=== PATIENT | male | born 1930 | race African-American/Black ===

== ENCOUNTER 2017-06-27 11:27 | Emergency (ER) | payer MEDICARE, OTHER ==
[~2017-06-27] VITALS: Ht 182.9 cm; Wt 59.0 kg
[~2017-06-27 11:27] MED LIST: OMEP20TA2 PO
[2017-06-27 13:58] VITALS: BP 129/70
== END 2017-06-27 13:59 | disposition home or self-care (01) ==
LOC: ER 12:14
DX: I10 Essential (primary) hypertension (principal); E78.00 Pure hypercholesterolemia, unspecified; Z88.0 Allergy status to penicillin
CPT/HCPCS: 99283

== ENCOUNTER 2018-07-05 01:46 | Inpatient (IN) | payer MEDICARE ==
[~2018-07-05] VITALS: Ht 180.3 cm; Wt 65.8 kg
[2018-07-05] MEDS ORDERED: SODIUM CHLORIDE 0.9% 1,000 ML IV ONE (02:58)
[2018-07-05] MEDS ORDERED: ONDANSETRON HCL 4MG/2ML INJ IV STA (02:58)
[2018-07-05] MEDS ORDERED: MORPHINE SULFATE 4 MG/ML CPJ (NOT FOR IM USE) IV STA (02:58)
[2018-07-05] MEDS ORDERED: FAMOTIDINE 20MG/2ML VIAL IV STA (02:58)
[2018-07-05] MEDS ORDERED: DIATR MEGLU/DIATRIZOATE SOLN 30ML ONE (03:43)
[2018-07-05 04:08] LABS: CHLORIDE 105 mEq/L (98-107)
[2018-07-05 04:09] LABS: HEMOGLOBIN. 13.1 g/dL (14.0-18.0); MEAN CORPUSCULAR HEMOGLOBIN 28.4 pg (28.0-32.0); MEAN CORPUSCULAR VOLUME 86.9 fL (80.0-94.0); MEAN PLATELET VOLUME 9.2 fl (7.4-10.4); PLATELET 109 x1000/uL (130-400); RED BLOOD CELL COUNT 4.61 mill/uL (4.7-6.1); RED CELL DISTRIBUTION WIDTH 15.4 % (11.6-14.6)
[2018-07-05] MEDS ORDERED: METOCLOPRAMIDE HCL 10MG/2ML VIAL IV ONE (05:15)
[2018-07-05] MEDS ORDERED: SODIUM CHLORIDE 0.9% 1,000 ML IV SCH (05:25)
[2018-07-05 06:12] LABS: PLATELET ESTIMATE SLIGHTLY DECREASED
[2018-07-05] MEDS ORDERED: IOHEXOL-350 100 ML BOTTLE ONE (06:49)
[2018-07-05 06:52] LABS: CLARITY URINE CLOUDY (CLEAR); COLOR URINE YELLOW (YELLOW); KETONES URINE TRACE (NEGATIVE); LEUKOCYTE ESTERASE URINE NEGATIVE (NEGATIVE); NITRITE URINE NEGATIVE (NEGATIVE); OCCULT BLOOD URINE NEGATIVE (NEGATIVE); PH URINE 8.5 (4.5-8.0); PROTEIN URINE 1+ (NEGATIVE); SPECIFIC GRAVITY URINE 1.023 (1.005-1.030); UROBILINOGEN URINE 0.2 E.U./dL (0.2-1.0)
[2018-07-05 07:45] VITALS: BP 166/91
[2018-07-05 08:00] VITALS: BP 166/91
[2018-07-05] MEDS ORDERED: MORPHINE SULFATE 4 MG/ML CPJ (NOT FOR IM USE) IV PRN (08:30)
[2018-07-05] MEDS: HYDRALAZINE 20MG/ML VIAL IV PRN ×3 (09:21→09:46)
[2018-07-05] MEDS: PANTOPRAZOLE SODIUM 40 MG/VIAL IV SCH (09:21)
[2018-07-05 10:27] VITALS: BP 156/91
[2018-07-05 12:00] VITALS: BP 156/75
[2018-07-05] MEDS: ENALAPRIL 1.25MG/ML VIAL 1ML IV SCH ×2 (13:05→18:36)
[2018-07-05] MEDS: ONDANSETRON HCL 4MG/2ML INJ IV PRN (14:52)
[2018-07-05] MEDS: DEXT 5%/0.45% NACL 1000ML 1,000 ML IV SCH ×2 (15:13→21:50)
[2018-07-05 16:00] VITALS: BP 143/72
[2018-07-05] MEDS ORDERED: DEXTROSE 50% WATER 50ML SYRINGE IV PRN (16:30)
[2018-07-05] MEDS: INSULIN LISPRO 100 UNITS/ML SUBCUT SCH ×2 (17:15→21:00)
[2018-07-05] MEDS: BLOOD SUGAR DIAGNOSTIC STRIP TEST SCH ×2 (17:27→21:00)
[2018-07-05 20:00] VITALS: BP 142/78
[2018-07-05 22:48] LABS: HEPATITIS B SURFACE ANTIGEN NEGATIVE
[2018-07-05 23:17] LABS: HEPATITIS B CORE AB IGM NEGATIVE
[2018-07-05 23:18] LABS: HEPATITIS A AB IGM NEGATIVE (NEGATIVE)
[2018-07-06] VITALS (8 sets, daily range): BP systolic 148–181; BP diastolic 79–97
[2018-07-06] MEDS: ENALAPRIL 1.25MG/ML VIAL 1ML IV SCH ×4 (05:46→18:03)
[2018-07-06 06:32] LABS: HEMATOCRIT. 39.1 % (42.0-52.0); MEAN CORPUSCULAR HEMOGLOBIN 28.9 pg (28.0-32.0); MEAN CORPUSCULAR VOLUME 86.9 fL (80.0-94.0); PLATELET 107 x1000/uL (130-400); RED CELL DISTRIBUTION WIDTH 15.4 % (11.6-14.6)
[2018-07-06] MEDS: BLOOD SUGAR DIAGNOSTIC STRIP TEST SCH ×4 (06:45→21:00)
[2018-07-06] MEDS: INSULIN LISPRO 100 UNITS/ML SUBCUT SCH ×4 (07:13→21:00)
[2018-07-06 08:31] LABS: CHLORIDE 106 mEq/L (98-107)
[2018-07-06] MEDS: PANTOPRAZOLE SODIUM 40 MG/VIAL IV SCH (08:58)
[2018-07-06] MEDS: ONDANSETRON HCL 4MG/2ML INJ IV PRN (09:35)
[2018-07-06 12:37] LABS: PLATELET ESTIMATE SLIGHTLY DECREASED
[2018-07-06] MEDS: DEXT 5%/0.45% NACL 1000ML 1,000 ML IV SCH (18:03)
[2018-07-07] VITALS (8 sets, daily range): BP systolic 120–166; BP diastolic 66–97
[2018-07-07] MEDS: ENALAPRIL 1.25MG/ML VIAL 1ML IV SCH ×4 (00:41→17:42)
[2018-07-07] MEDS: DEXT 5%/0.45% NACL 1000ML 1,000 ML IV SCH (00:43)
[2018-07-07] MEDS: BLOOD SUGAR DIAGNOSTIC STRIP TEST SCH ×4 (07:15→21:00)
[2018-07-07] MEDS: INSULIN LISPRO 100 UNITS/ML SUBCUT SCH ×4 (07:15→21:00)
[2018-07-07] MEDS: PANTOPRAZOLE SODIUM 40 MG/VIAL IV SCH (08:47)
[2018-07-07] MEDS ORDERED: HYDROMORPHONE HCL/PF 2MG/ML CPJ IV PRN (09:00)
[2018-07-07] MEDS ORDERED: ONDANSETRON HCL 4MG/2ML INJ IV PRN ×2 (09:00→09:15)
[2018-07-07] MEDS ORDERED: PROPOFOL 200MG/20ML VIAL IV ONE (09:08)
[2018-07-07] MEDS ORDERED: MORPHINE SULFATE 4 MG/ML CPJ (NOT FOR IM USE) IV PRN (09:15)
[2018-07-07] MEDS ORDERED: BUPIVACAINE HCL 0.5% (5MG/ML) 50ML ONE (09:16)
[2018-07-07] MEDS ORDERED: SKIN ADHESIVE 0.7 GM EA TOP ONE (09:17)
[2018-07-07] MEDS ORDERED: LEVOFLOXACIN 500MG PREMIX 100 ML IV ONE (09:23)
[2018-07-07] MEDS ORDERED: FENTANYL CITRATE/PF 50MCG/ML 2ML VIAL ONE (09:23)
[2018-07-07] MEDS ORDERED: GLYCOPYRROLATE 0.2 MG/ML 2ML VIAL ONE ×3 (09:23→09:57)
[2018-07-07] MEDS ORDERED: NEOSTIGMINE METHYLSULFATE 1MG/ML 10 ML VIAL ONE (09:24)
[2018-07-07 16:02] LABS: HEMATOCRIT. 41.1 % (42.0-52.0); HEMOGLOBIN. 13.6 g/dL (14.0-18.0); MEAN CORPUSCULAR HEMOGLOBIN 28.7 pg (28.0-32.0); MEAN CORPUSCULAR VOLUME 86.8 fL (80.0-94.0); MEAN PLATELET VOLUME 9.2 fl (7.4-10.4); PLATELET 100 x1000/uL (130-400); RED BLOOD CELL COUNT 4.73 mill/uL (4.7-6.1); RED CELL DISTRIBUTION WIDTH 15.2 % (11.6-14.6)
[2018-07-07 16:17] LABS: CHLORIDE 105 mEq/L (98-107)
[2018-07-07 18:00] LABS: PLATELET ESTIMATE SLIGHTLY DECREASED
[2018-07-07] MEDS: DEXT 5%/0.45% NACL KCL 20MEQ/L 1,000 ML IV SCH ×2 (18:21→21:13)
[2018-07-07] MEDS: MORPHINE SULFATE 4 MG/ML CPJ (NOT FOR IM USE) IV PRN (18:21)
[2018-07-07] MEDS: ONDANSETRON HCL 4MG/2ML INJ IV PRN (21:12)
[2018-07-07] MEDS: FAMOTIDINE 20MG/2ML VIAL IV SCH (21:12)
[2018-07-08] VITALS: BP 110/58
[2018-07-08 04:00] VITALS: BP_SYST 110; BP_SYST 139; BP_DIAS 49; BP_DIAS 58
[2018-07-08] MEDS: ENALAPRIL 1.25MG/ML VIAL 1ML IV SCH ×3 (06:00→12:21)
[2018-07-08] MEDS: DEXT 5%/0.45% NACL KCL 20MEQ/L 1,000 ML IV SCH ×2 (06:24→17:51)
[2018-07-08] MEDS: BLOOD SUGAR DIAGNOSTIC STRIP TEST SCH ×4 (06:45→21:14)
[2018-07-08 07:11] LABS: BASOPHILS % 0.4 % (0.0-2.0); EOSINOPHILS % 0.8 % (0.0-5.0); HEMATOCRIT. 38.9 % (42.0-52.0); HEMOGLOBIN. 12.7 g/dL (14.0-18.0); LYMPHOCYTES % 9.2 % (20.0-50.0); MEAN CORPUSCULAR HEMOGLOBIN 28.2 pg (28.0-32.0); MEAN CORPUSCULAR VOLUME 86.5 fL (80.0-94.0); MEAN PLATELET VOLUME 9.1 fl (7.4-10.4); MONOCYTES % 11.5 % (2.0-8.0); NEUTROPHILS % 78.1 % (40.0-76.0); PLATELET 96 x1000/uL (130-400); RED CELL DISTRIBUTION WIDTH 15.2 % (11.6-14.6)
[2018-07-08] MEDS: INSULIN LISPRO 100 UNITS/ML SUBCUT SCH ×4 (07:15→21:00)
[2018-07-08 07:16] LABS: CHLORIDE 105 mEq/L (98-107)
[2018-07-08] MEDS: ONDANSETRON HCL 4MG/2ML INJ IV PRN (07:30)
[2018-07-08] MEDS: MORPHINE SULFATE 4 MG/ML CPJ (NOT FOR IM USE) IV PRN ×2 (07:34→12:21)
[2018-07-08 08:00] VITALS: BP 160/71
[2018-07-08] MEDS: FAMOTIDINE 20MG/2ML VIAL IV SCH (09:00)
[2018-07-08] MEDS: PANTOPRAZOLE SODIUM 40 MG/VIAL IV SCH (10:00)
[2018-07-08 12:00] VITALS: BP 147/78
[2018-07-08 16:00] VITALS: BP 152/90
[2018-07-08] MEDS: LOSARTAN POTASSIUM 50 MG TABLET PO SCH ×2 (17:51→20:58)
[2018-07-08] MEDS: AMLODIPINE 10MG TABLET PO SCH (17:52)
[2018-07-08 20:00] VITALS: BP 123/55
[2018-07-09] VITALS: BP 106/64
[2018-07-09 04:00] VITALS: BP 127/68
[2018-07-09] MEDS: DEXT 5%/0.45% NACL KCL 20MEQ/L 1,000 ML IV SCH ×3 (06:20→20:58)
[2018-07-09] MEDS: INSULIN LISPRO 100 UNITS/ML SUBCUT SCH ×4 (06:22→20:58)
[2018-07-09] MEDS: BLOOD SUGAR DIAGNOSTIC STRIP TEST SCH ×4 (06:22→20:58)
[2018-07-09 06:48] LABS: BASOPHILS % 0.8 % (0.0-2.0); EOSINOPHILS % 2.5 % (0.0-5.0); HEMATOCRIT. 36.2 % (42.0-52.0); LYMPHOCYTES % 16.4 % (20.0-50.0); MEAN CORPUSCULAR HEMOGLOBIN 28.5 pg (28.0-32.0); MEAN CORPUSCULAR VOLUME 86.2 fL (80.0-94.0); MEAN PLATELET VOLUME 8.9 fl (7.4-10.4); MONOCYTES % 14.2 % (2.0-8.0); NEUTROPHILS % 66.1 % (40.0-76.0); PLATELET 87 x1000/uL (130-400); RED CELL DISTRIBUTION WIDTH 15.1 % (11.6-14.6)
[2018-07-09 07:02] LABS: CHLORIDE 105 mEq/L (98-107)
[2018-07-09 08:00] VITALS: BP 129/67
[2018-07-09] MEDS: PANTOPRAZOLE SODIUM 40 MG/VIAL IV SCH (09:56)
[2018-07-09] MEDS: FAMOTIDINE 20MG/2ML VIAL IV SCH (09:56)
[2018-07-09] MEDS: AMLODIPINE 10MG TABLET PO SCH (09:57)
[2018-07-09] MEDS: LOSARTAN POTASSIUM 50 MG TABLET PO SCH ×2 (09:57→20:57)
[2018-07-09] MEDS: BISACODYL 10MG SUPP PR SCH ×3 (09:57→20:57)
[2018-07-09 12:00] VITALS: BP 138/80
[2018-07-09 16:00] VITALS: BP 142/83
[2018-07-09 20:00] VITALS: BP 142/93
[2018-07-09] MEDS: ACETAMINOPHEN 650MG SUPP PR PRN (20:57)
[2018-07-10] VITALS: BP 145/84
[2018-07-10 04:00] VITALS: BP 121/79
[2018-07-10] MEDS: ACETAMINOPHEN 650MG SUPP PR PRN (05:53)
[2018-07-10] MEDS: BLOOD SUGAR DIAGNOSTIC STRIP TEST SCH (05:54)
[2018-07-10] MEDS: INSULIN LISPRO 100 UNITS/ML SUBCUT SCH (05:54)
[2018-07-10 08:00] VITALS: BP 144/83
[2018-07-10] MEDS: FAMOTIDINE 20MG/2ML VIAL IV SCH (09:29)
[2018-07-10] MEDS: PANTOPRAZOLE SODIUM 40 MG/VIAL IV SCH (09:29)
[2018-07-10] MEDS: AMLODIPINE 10MG TABLET PO SCH (09:30)
[2018-07-10] MEDS: LOSARTAN POTASSIUM 50 MG TABLET PO SCH (09:30)
[2018-07-10] MEDS ORDERED: LOSA50TA3 PO (10:10)
[2018-07-10] MEDS ORDERED: AMLO10TA80 PO (10:10)
[2018-07-10 10:41] VITALS: BP 144/85
== END 2018-07-10 12:45 | disposition home or self-care (01) | DRG 330 ==
LOC: ER 01:46 → 5WST 05:27 → EDBEDREQTM 05:28 → EDBEDREQ 05:28 → ENRESERV 05:37 → 5WST 07-06 10:20
PROVIDERS: ADMIT Internal Medicine; ATTEND Internal Medicine
PROC: 0DB80ZZ Excision of Small Intestine, Open Approach (ICD-10-PCS; 2018-07-07)
PROC: 0DN80ZZ Release Small Intestine, Open Approach (ICD-10-PCS; principal; 2018-07-07 09:00)
DX: K56.50 Intestinal adhesions [bands], unspecified as to partial versus complete obstruction (principal); E87.0 Hyperosmolality and hypernatremia; D69.6 Thrombocytopenia, unspecified; J47.9 Bronchiectasis, uncomplicated; D64.9 Anemia, unspecified; E11.9 Type 2 diabetes mellitus without complications; E78.5 Hyperlipidemia, unspecified; I10 Essential (primary) hypertension; K56.7 Ileus, unspecified; Z88.0 Allergy status to penicillin
CPT/HCPCS: 36415; 71045; 74018; 74177; 80048; 80061; 82962; 83036; 83605; 83880; 84443; 86705; 86709; 86803; 87340; 93005; 93306; 96361; 96374; 96375; 99285; C9113; J0360; J1956; J2270; J2405; J2704; J2710; J2765; J3010; J3490; J7030; Q9963; Q9967

== ENCOUNTER 2018-07-21 06:59 | Inpatient (IN) | payer MEDICARE, OTHER ==
[~2018-07-21] VITALS: Ht 182.9 cm; Wt 61.7 kg
[~2018-07-21 06:59] MED LIST changes: +AMLO10TA80 PO; +LOSA50TA3 PO; -OMEP20TA2 PO
[2018-07-21] MEDS ORDERED: VISCOUS LIDOCAINE 2% 15 ML UDC MM STA (08:38)
[2018-07-21] MEDS ORDERED: SODIUM CHLORIDE 0.9% 1,000 ML IV ONE (09:00)
[2018-07-21 09:22] LABS: CHLORIDE 102 mEq/L (98-107)
[2018-07-21 09:23] LABS: PROTHROMBIN TIME 10.1 sec (9.1-11.1)
[2018-07-21 09:31] LABS: HEMATOCRIT. 40.6 % (42.0-52.0); HEMOGLOBIN. 13.3 g/dL (14.0-18.0); MEAN CORPUSCULAR HEMOGLOBIN 28.6 pg (28.0-32.0); MEAN PLATELET VOLUME 10.2 fl (7.4-10.4); PLATELET 189 x1000/uL (130-400); RED BLOOD CELL COUNT 4.66 mill/uL (4.7-6.1); RED CELL DISTRIBUTION WIDTH 15.2 % (11.6-14.6)
[2018-07-21 10:31] LABS: PLATELET ESTIMATE NORMAL
[2018-07-21] MEDS ORDERED: HYDR-4001 PO (11:41)
[2018-07-21] MEDS ORDERED: SODIUM CHLORIDE 0.9% 1,000 ML IV SCH (11:43)
[2018-07-21] MEDS ORDERED: ACETAMINOPHEN 650MG SUPP PR PRN (11:45)
[2018-07-21] MEDS ORDERED: ONDANSETRON HCL 4MG/2ML INJ IV PRN (11:45)
[2018-07-21] MEDS ORDERED: CLONIDINE 0.1MG TABLET PO PRN (11:45)
[2018-07-21 12:00] VITALS: BP 129/67
[2018-07-21 12:18] VITALS: BP 129/67
[2018-07-21] MEDS ORDERED: MVI, ADULT NO.1 10 ML, FOLIC ACID 1 MG, THIAMINE HCL 100 MG in SODIUM CHLORIDE 0.9% 1,0... IV ONE ×4 (13:00)
[2018-07-21 16:00] VITALS: BP 96/59
[2018-07-21 20:00] VITALS: BP 127/61
[2018-07-21] MEDS ORDERED: MORPHINE SULFATE 2 MG/ML CPJ (NOT FOR IM USE) IV PRN (20:45)
[2018-07-21] MEDS: DEXT 5%/0.45% NACL 1000ML 1,000 ML IV SCH (22:05)
[2018-07-22] VITALS: BP 115/66
[2018-07-22 03:32] LABS: CLARITY URINE CLEAR (CLEAR); COLOR URINE YELLOW (YELLOW); KETONES URINE TRACE (NEGATIVE); LEUKOCYTE ESTERASE URINE NEGATIVE (NEGATIVE); NITRITE URINE NEGATIVE (NEGATIVE); OCCULT BLOOD URINE NEGATIVE (NEGATIVE); PROTEIN URINE NEGATIVE (NEGATIVE); SPECIFIC GRAVITY URINE 1.021 (1.005-1.030); UROBILINOGEN URINE 0.2 E.U./dL (0.2-1.0)
[2018-07-22 04:00] VITALS: BP 121/79
[2018-07-22 08:00] VITALS: BP 114/73
[2018-07-22 09:16] LABS: EOSINOPHILS % 2.4 % (0.0-5.0); HEMATOCRIT. 35.4 % (42.0-52.0); HEMOGLOBIN. 11.7 g/dL (14.0-18.0); LYMPHOCYTES % 17.5 % (20.0-50.0); MEAN CORPUSCULAR HEMOGLOBIN 28.3 pg (28.0-32.0); MEAN CORPUSCULAR VOLUME 86.2 fL (80.0-94.0); MEAN PLATELET VOLUME 9.8 fl (7.4-10.4); MONOCYTES % 7.9 % (2.0-8.0); NEUTROPHILS % 71.2 % (40.0-76.0); PLATELET 164 x1000/uL (130-400); RED BLOOD CELL COUNT 4.11 mill/uL (4.7-6.1); RED CELL DISTRIBUTION WIDTH 14.8 % (11.6-14.6)
[2018-07-22 10:55] LABS: CHLORIDE 106 mEq/L (98-107)
[2018-07-22 12:00] VITALS: BP 121/75
[2018-07-22] MEDS ORDERED: MORPHINE SULFATE 4 MG/ML CPJ (NOT FOR IM USE) IV PRN (12:53)
[2018-07-22 16:00] VITALS: BP 125/78
[2018-07-22 20:00] VITALS: BP 136/82
[2018-07-23] VITALS: BP 117/78
[2018-07-23 04:00] VITALS: BP 122/73
[2018-07-23] MEDS: DEXT 5%/0.45% NACL 1000ML 1,000 ML IV SCH ×2 (04:49→19:39)
[2018-07-23 08:00] VITALS: BP 105/62
[2018-07-23 12:00] VITALS: BP 131/71
[2018-07-23 16:00] VITALS: BP 107/65
[2018-07-23 20:00] VITALS: BP 113/63
[2018-07-24] VITALS: BP 97/59
[2018-07-24 04:00] VITALS: BP 101/64
[2018-07-24] MEDS: DEXT 5%/0.45% NACL 1000ML 1,000 ML IV SCH (05:15)
[2018-07-24 06:46] LABS: EOSINOPHILS % 3.9 % (0.0-5.0); HEMATOCRIT. 34.7 % (42.0-52.0); HEMOGLOBIN. 11.6 g/dL (14.0-18.0); LYMPHOCYTES % 21.5 % (20.0-50.0); MEAN CORPUSCULAR HEMOGLOBIN 28.7 pg (28.0-32.0); MEAN CORPUSCULAR VOLUME 86.2 fL (80.0-94.0); MEAN PLATELET VOLUME 9.9 fl (7.4-10.4); MONOCYTES % 11.2 % (2.0-8.0); NEUTROPHILS % 62.4 % (40.0-76.0); PLATELET 156 x1000/uL (130-400); RED BLOOD CELL COUNT 4.03 mill/uL (4.7-6.1); RED CELL DISTRIBUTION WIDTH 15.3 % (11.6-14.6)
[2018-07-24 08:00] VITALS: BP 125/72
[2018-07-24 08:02] LABS: CHLORIDE 107 mEq/L (98-107)
[2018-07-24 12:00] VITALS: BP 114/77
[2018-07-24 14:12] VITALS: BP 116/63
== END 2018-07-24 14:23 | disposition home or self-care (01) | DRG 394 ==
LOC: ER 07:49 → 6EST 08:51 → ENRESERV 10:25
PROVIDERS: ADMIT Internal Medicine; ATTEND Internal Medicine
PROC: 0D9670Z Drainage of Stomach with Drainage Device, Via Natural or Artificial Opening (ICD-10-PCS; principal; 2018-07-21)
DX: K91.89 Other postprocedural complications and disorders of digestive system (principal); K56.7 Ileus, unspecified; E44.1 Mild protein-calorie malnutrition; Z68.1 Body mass index [BMI] 19.9 or less, adult; K21.9 Gastro-esophageal reflux disease without esophagitis; I10 Essential (primary) hypertension; E78.5 Hyperlipidemia, unspecified; M19.90 Unspecified osteoarthritis, unspecified site; H91.90 Unspecified hearing loss, unspecified ear; J43.9 Emphysema, unspecified; E78.00 Pure hypercholesterolemia, unspecified; H26.9 Unspecified cataract; K76.89 Other specified diseases of liver; Z80.42 Family history of malignant neoplasm of prostate; Z82.49 Family history of ischemic heart disease and other diseases of the circulatory system; Z85.46 Personal history of malignant neoplasm of prostate; Z87.11 Personal history of peptic ulcer disease; Z90.79 Acquired absence of other genital organ(s); Z88.0 Allergy status to penicillin
CPT/HCPCS: 36415; 71045; 74018; 74176; 80048; 82040; 83605; 84484; 93005; 99285; J3411; J3490; J7030